=== PATIENT | female | born 1965 | race Caucasian/White ===

== ENCOUNTER → 2022-11-30 | Outpatient (CLI) | payer BC ==
[2022-12-08 13:12] LABS: HPV 16 Negative (Negative); HPV 18 Negative (Negative); HPV OTHER HR TYPES Negative (Negative)
== END ==
LOC: LAB 08:25 → LAB SHORT 08:25
PROVIDERS: Internal Medicine
DX: Z12.4 Encounter for screening for malignant neoplasm of cervix (principal)
CPT/HCPCS: 87624; G0145